=== PATIENT | male | born 1980 | race Two or more races ===

== ENCOUNTER 2020-01-02 17:40 | Emergency (ER) | payer OTHER, MEDICAID ==
[~2020-01-02] VITALS: Ht 177.8 cm; Wt 84.5 kg
[2020-01-02 19:41] VITALS: BP 138/88
== END 2020-01-02 19:41 | disposition left against medical advice (07) ==
LOC: ER 17:40
DX: M79.10 Myalgia, unspecified site (principal); B54 Unspecified malaria; L53.9 Erythematous condition, unspecified
CPT/HCPCS: 99283